=== PATIENT | female | born 1990 | race American Indian/Alaskan Native ===

== ENCOUNTER 2018-01-08 18:05 | Emergency (ER) | payer MEDICAID ==
[2018-01-08 18:41] VITALS: BP 103/69
[2018-01-08] MEDS ORDERED: TYLENOL ONE (19:43)
[2018-01-08] MEDS ORDERED: TYLENOL PO ONE (19:43)
--- NOTE | 2018-01-08 19:45 | Emergency Department Report ---
Blank Doc - Documentation Documentation: Patient is a 27-year-old female at 11 weeks and presents with lower bowel passing gone on for the last couple of days. Patient states that she believes she is in weeks . Patient is having lower bowel pain that she has had an . I will urinalysis and urine tests. Patient states that she is going to an [facility] to evaluate her so she does not need an ultrasound here.
[2018-01-08 19:55] LABS: HCG Qualitative,Urine Positive (Negative)
[2018-01-08 19:57] LABS: Bilirubin,Urine NEG (Negative); Blood,Urine NEG (Negative); Color,Urine Yellow (Yellow); Mucus,Urine FEW /HPF; Protein,Urine <15 mg/dL mg/dL (Negative); Urobilinogen,Urine < 2.0 mg/dL (<2.0); WBC,Urine < 1.0 /HPF (0.0-6.0)
--- NOTE | 2018-01-08 20:57 | Emergency Department Report ---
ED General Adult HPI - General Chief complaint: Abdominal Pain Stated complaint: ABDOMINAL PAIN Time Seen by Provider: 01/08/18 20:51 Source: patient Mode of arrival: Ambulatory Limitations: No Limitations - History of Present Illness Initial comments: Patient is a 27-year-old female she too P1 11 weeks presents with lower abdominal pain. The abdominal pain as a 2 out of 10. It is negative pain that occasionally occurs nothing makes the pain better or worse. It is intermittent she denies any nausea or vomiting. Patient also states that she came here because her [facility] a proof of a positive test. Severity scale (0 -10): 6 - Related Data Allergies Allergy/AdvReac Type Severity Reaction Status Date / Time No Known Allergies Allergy Unverified 01/08/18 18:37 ED Review of Systems ROS: Stated complaint: ABDOMINAL PAIN Other details as noted in HPI Constitutional: denies: chills, fever Eyes: denies: eye pain, eye discharge, vision change ENT: denies: ear pain, throat pain Respiratory: denies: cough, shortness of breath, wheezing Cardiovascular: denies: chest pain, palpitations Endocrine: no symptoms reported Gastrointestinal: denies: abdominal pain, nausea, diarrhea Genitourinary: denies: urgency, dysuria, discharge Musculoskeletal: denies: back pain, joint swelling, arthralgia Skin: denies: rash, lesions Neurological: denies: headache, weakness, paresthesias Psychiatric: denies: anxiety, depression Hematological/Lymphatic: denies: easy bleeding, easy bruising ED Past Medical Hx - Past Medical History Previous Medical History?: No - Surgical History Past Surgical History?: No - Social History Smoking Status: Never Smoker Substance Use Type: None ED Physical Exam - General Limitations: No Limitations General appearance: alert, in no apparent distress - Head Head exam: Present: atraumatic, normocephalic - Eye Eye exam: Present: normal appearance - ENT ENT exam: Present: mucous membranes moist - Neck Neck exam: Present: normal inspection - Respiratory Respiratory exam: Present: normal lung sounds bilaterally. Absent: respiratory distress - Cardiovascular Cardiovascular Exam: Present: regular rate, normal rhythm. Absent: systolic murmur, diastolic murmur, rubs, gallop - GI/Abdominal GI/Abdominal exam: Present: soft, normal bowel sounds - Extremities Exam Extremities exam: Present: normal inspection - Back Exam Back exam: Present: normal inspection - Neurological Exam Neurological exam: Present: alert, oriented X3 - Psychiatric Psychiatric exam: Present: normal affect, normal mood - Skin Skin exam: Present: warm, dry, intact, normal color. Absent: rash ED Course Vital Signs 01/08/18 18:37 Temperature 97.4 F L Pulse Rate 103 H Respiratory 16 Rate Blood Pressure 103/69 O2 Sat by Pulse 100 Oximetry ED Medical Decision Making - Medical Decision Making Cdx: Ddx: UTI, round ligament pain I will get urinalysis and urine test. Urine test is positive I will have pt f/u with OBGYN provider. Discussed outpatient followup with patient and patient agrees plan to be discharged additional verbal discharge instructions were given. Critical care attestation.: If time is entered above; I have spent that time in minutes in the direct care of this critically ill patient, excluding procedure time. ED Disposition Clinical Impression: Abdominal pain during in first trimester, Positive test Disposition: - TO HOME OR SELFCARE Is pt being admited?: No Does the pt Need Aspirin: No Condition: Stable Instructions: (ED) Referrals: JAMEEL BAH MD [Staff Physician] - 3-5 Days
== END 2018-01-08 20:56 | disposition home or self-care (01) ==
LOC: ED 18:05
DX: O26.891 Other specified pregnancy related conditions, first trimester (principal); R10.30 Lower abdominal pain, unspecified; Z3A.11 11 weeks gestation of pregnancy
CPT/HCPCS: 81001; 81025; 99283